=== PATIENT | female | born 2000 | race Asian ===

== ENCOUNTER → 2024-04-30 | Outpatient (CLI) | payer MEDICAID, SELFPAY ==
--- NOTE | 2024-04-30 14:30 | ECHO_ITS ---
Transthoracic Echo Report Ht (in): 62 Wt (lb): 96 Exam Location: Echo Lab Status: Outpatient Product Tester: GAB Hernandez^^^^ Indications: Procedure Performed: BP: 118 / 74 HR: 87 Technical Quality: Technically difficult study MEASUREMENTS (Male / Female) Normal Values 2D ECHO LV Diastolic Diameter PLAX 3.4 cm 4.2 - 5.9 / 3.9 - 5.3 cm LV Systolic Diameter PLAX 2.1 cm IVS Diastolic Thickness 0.6 cm 0.6 - 1.0 / 0.6 - 0.9 cm LVPW Diastolic Thickness 0.9 cm 0.6 - 1.0 / 0.6 - 0.9 cm LV Relative Wall Thickness 0.4 LVOT Diameter 1.5 cm Aortic Root Diameter 2.1 cm LA Systolic Diameter LX 1.6 cm 3.0 - 4.0 / 2.7 - 3.8 cm DOPPLER AV Peak Velocity 102.0 cm/s AV Peak Gradient 4.2 mmHg AV Mean Gradient 3.0 mmHg AV Velocity Time Integral 18.7 cm LVOT Peak Velocity 63.5 cm/s LVOT Peak Gradient 1.6 mmHg LVOT Velocity Time Integral 17.2 cm LVOT Cardiac Index 1927.3 cm?/min?m? AV Area Cont Eq vti 1.6 cm? AV Area Cont Eq pk 1.1 cm? MV Area PHT 4.7 cm? Mitral E Point Velocity 56.3 cm/s Mitral A Point Velocity 46.3 cm/s Mitral E to A Ratio 1.2 LV E' Lateral Velocity 9.9 cm/s Mitral E to LV E' Lateral Ratio 5.7 LV E' Septal Velocity 7.6 cm/s Mitral E to LV E' Septal Ratio 7.4 TR Peak Velocity 150.0 cm/s TR Peak Gradient 9.0 mmHg PV Peak Velocity 102.0 cm/s PV Peak Gradient 4.2 mmHg RVOT Peak Velocity 72.4 cm/s FINDINGS Left Ventricle Normal left ventricular size, wall thickness, systolic function with no obvious regional wall motion abnormalities. Normal left ventricular diastolic filling pattern for age. The ejection fraction is visually estimated at 60-65%. Right Ventricle The right ventricle is normal in size and systolic function. The estimated right ventricular systolic pressure, 10 mmHg. Left Atrium The left atrium is normal by two-dimensional, color flow and Doppler imaging with no structural abnormalities, no thrombus formation present. Right Atrium The right atrium is normal by two-dimensional imaging, color flow and Doppler imaging with no structural abnormalities, no thrombus formation present. Atrial Septum The interatrial septum appears normal with no evidence of a shunt. Aorta The aorta is normal by two-dimensional, color flow and Doppler interrogation. Mitral Valve Trace to mild mitral regurgitation. Aortic Valve The aortic valve is trileaflet and normal by two-dimensional, color flow and Doppler interrogation. There is no significant aortic valve regurgitation. Tricuspid Valve There is trace tricuspid valve regurgitation. Pulmonic Valve Trivial pulmonic valve regurgitation. Vessels The pulmonary artery appears normal. The inferior vena cava pulmonary and hepatic veins appear normal. Pericardium The pericardium is normal by two-dimensional imaging. There is no significant pericardial effusion. CONCLUSIONS Indication: Systolic murmur Normal LV size and function. Estimated EF is 60 to 65%. Normal RV size and function. Estimated RVSP normal. Normal valves with only trace MR as well as trace to mild TR. Magdy Mosnalve (Electronically Signed) Final Date: 02 May 2024 09:51
== END | disposition home or self-care (01) ==
LOC: SDIM 14:06
PROVIDERS: PCP Family Medicine; Referring Provider Family Medicine; Visit Provider Family Medicine
DX: I08.1 Rheumatic disorders of both mitral and tricuspid valves (principal)
CPT/HCPCS: 93306